=== PATIENT | male | born 1985 | race Caucasian/White ===

== ENCOUNTER 2017-06-25 09:46 | Observation (INO) | payer MEDICAID ==
[2017-06-25] VITALS (7 sets, daily range): BP systolic 118–157; BP diastolic 66–91; PULSE 52–77; RESP 16–18; TEMP 97.8–98.4; O2SAT 97–98
[~2017-06-25] VITALS: Ht 182.9 cm; Wt 100.0 kg
--- NOTE | 2017-06-25 10:10 | PD ---
HPI Chief Complaint: Laceration/Skin Injury Time Seen by Provider: 10:10 Travel History International Travel<30 days: No Contact w/Intl Traveler<30days: No Traveled to known affect area: Yes ([facility] ) History of Present Illness HPI 32-year-old male presents emergency department with injury to the left palm. Patient was working on some electrical outlets last evening, and states he was trying to knock a metal piece out of a electrical box with a Hassan head screwdriver which he then drove into his left palm. He waited until this morning as last evening it did not hurt as bad but now he has pain, swelling, and numbness into the left third and fourth fingers. There is swelling to the dorsal surface of the hand without erythema or warmth. There is no obvious puncture wound to the center of the left palm. Patient states his pain is currently 9 out of 10. Pain causes him to be unwilling to move his left third and fourth fingers. He last ate last evening. His last tetanus was over 5 years ago. He is allergic to vancomycin. [facility] Social History Alcohol Use: No Tobacco Use: No Substance Use: No Allergies-Medications (Allergen,Severity, Reaction): Coded Allergies: vancomycin (Verified Allergy, Intermediate, Rash, 06/25/17) Reported Meds & Prescriptions Reported Meds & Active Scripts Active Review of Systems Except as stated in HPI: all other systems reviewed are Neg General / Constitutional: No: Fever Eyes: No: Visual changes HENT: No: Headaches Cardiovascular: No: Chest Pain or Discomfort Respiratory: No: Shortness of Breath Gastrointestinal: No: Abdominal Pain Genitourinary: No: Dysuria Musculoskeletal: Positive: Myalgias, Limited ROM, Pain (See history of present illness) Skin: No Rash Neurologic: No: Weakness Psychiatric: No: Depression Endocrine: No: Polydipsia Hematologic/Lymphatic: No: Easy Bruising Physical Exam Narrative GENERAL: Patient appears in mild to moderate distress SKIN: Warm and dry. Normal color. Normal turgor. There is ecchymosis to the dorsum of the left hand. There is an obvious puncture wound to the central palm of the left hand. No significant erythema or streaking is noted. HEAD: Atraumatic. Normocephalic. EYES: Pupils equal and round. No scleral icterus. No injection or drainage. ENT: No nasal bleeding or discharge. Mucous membranes pink and moist. Pharynx is clear. Airways patent NECK: Trachea midline. Supple. CARDIOVASCULAR: Regular rate and rhythm. RESPIRATORY: No accessory muscle use. Clear to auscultation. Breath sounds equal bilaterally. MUSCULOSKELETAL: Extremities without clubbing, cyanosis, or edema. No obvious deformities. Patient has limited motion of the left finger secondary to pain, but normal neurovascular exam is noted. Exam is limited secondary to pain. No loss of function noted. NEUROLOGICAL: Awake and alert. No obvious cranial nerve deficits. Motor grossly within normal limits. Five out of 5 muscle strength in the arms and legs. Normal speech. PSYCHIATRIC: Appropriate mood and affect; insight and judgment normal. Data Data Last Documented VS Orders Orders Complete Blood Count With Diff (06/25/17 10:17) Comprehensive Metabolic Panel (06/25/17 10:17) Prothrombin Time / Inr (Pt) (06/25/17 10:17) Act Partial Throm Time (Ptt) (06/25/17 10:17) Iv Access Insert/Monitor (06/25/17 10:17) Ecg Monitoring (06/25/17 10:17) Oximetry (06/25/17 10:17) NPO (06/25/17 10:17) Ondansetron Inj (Zofran Inj) (06/25/17 10:30) Sodium Chlor 0.9% 1000 Ml Inj (Ns 1000 M (06/25/17 10:17) Sodium Chloride 0.9% Flush (Ns Flush) (06/25/17 10:30) Chest, Single Ap (06/25/17 10:17) Ketorolac Inj (Toradol Inj) (06/25/17 10:30) Hand, Complete (Jcy8btg) (06/25/17 10:17) Ice/Cold Pack (06/25/17 10:17) Cefazolin 2 Gm Premix (Ancef 2 Gm Premix (06/25/17 10:30) Consult Hand Surgery (06/25/17 ) (Hub Use Only)Inp Phy Cons/Ref (06/25/17 ) Admit Order (Ed Use Only) (06/25/17 13:17) Labs Laboratory Tests Test 06/25/17 10:45 White Blood Count 7.8 TH/MM3 Red Blood Count 4.65 MIL/MM3 Hemoglobin 15.3 GM/DL Hematocrit 43.6 % Mean Corpuscular Volume 93.9 FL Mean Corpuscular Hemoglobin 32.9 PG Mean Corpuscular Hemoglobin Concent 35.1 % Red Cell Distribution Width 13.6 % Platelet Count 244 TH/MM3 Mean Platelet Volume 8.5 FL Neutrophils (%) (Auto) 69.9 % Lymphocytes (%) (Auto) 19.2 % Monocytes (%) (Auto) 7.5 % Eosinophils (%) (Auto) 2.9 % Basophils (%) (Auto) 0.5 % Neutrophils # (Auto) 5.5 TH/MM3 Lymphocytes # (Auto) 1.5 TH/MM3 Monocytes # (Auto) 0.6 TH/MM3 Eosinophils # (Auto) 0.2 TH/MM3 Basophils # (Auto) 0.0 TH/MM3 CBC Comment DIFF FINAL Differential Comment Prothrombin Time 10.3 SEC Prothromb Time International Ratio 1.0 RATIO Activated Partial Thromboplast Time 25.9 SEC Blood Urea Nitrogen 14 MG/DL Creatinine 0.81 MG/DL Random Glucose 99 MG/DL Total Protein 7.3 GM/DL Albumin 4.0 GM/DL Calcium Level 8.9 MG/DL Alkaline Phosphatase 66 U/L Aspartate Amino Transf (AST/SGOT) 24 U/L Alanine Aminotransferase (ALT/SGPT) 37 U/L Total Bilirubin 0.9 MG/DL Sodium Level 140 MEQ/L Potassium Level 3.9 MEQ/L Chloride Level 105 MEQ/L Carbon Dioxide Level 26.2 MEQ/L Anion Gap 9 MEQ/L Estimat Glomerular Filtration Rate 109 ML/MIN MDM Medical Decision Making Medical Screen Exam Complete: Yes Emergency Medical Condition: Yes Differential Diagnosis Left hand puncture wound. Possible fracture. Foreign body. Infection. Narrative Course Patient is n.p.o. Patient is medically stable at time of exam. Labs ordered including CBC, CMP, and IV access is obtained. Tetanus is given 0.5 mg IM per X-ray of the chest and left hand are ordered. Patient is given 30 mg Toradol IV as well as 2 g Ancef IV. Patient requests no narcotics. X-rays show soft tissue swelling but no other acute findings. There is no free air. Labs are unremarkable. Calls placed to , the hand surgeon, and the patient as discussed. He requested the patient be admitted to the hospitalist for IV antibiotics, left arm elevation, and kept n.p.o. for his consult. Calls placed to the hospitalist at 1200 hrs. Diagnosis Primary Impression: Puncture wound of left hand Qualified Codes: S61.432A - Puncture wound without foreign body of left hand, initial encounter Scripts Ibuprofen (Ibuprofen) 200 Mg Cap 200 MG PO Q6H Y for PAIN for 10 Days, #40 CAP 0 Refills Prov: Nudalo-Briganti,Iszenn [employer] 06/26/17 Cephalexin (Keflex) 500 Mg Cap 500 MG PO Q6H for Infection for 10 Days, #40 CAP 0 Refills Prov: Andreas-KatharinaIszencasimiro [employer] 06/26/17 Condition: Stable Aung Rutherford Jun 25, 2017 10:10
[2017-06-25] MEDS ORDERED: SODIUM CHLOR 0.9% 1000 ML INJ 1,000 ML IV SCH (10:17)
[2017-06-25] MEDS ORDERED: ONDANSETRON HCL 4 MG/2 ML VIAL IVP ONE (10:30)
[2017-06-25] MEDS ORDERED: SODIUM CHLORIDE 0.9% FLUSH 10 ML FLUSH IV FLUSH PRN ×2 (10:30→14:00)
[2017-06-25] MEDS ORDERED: KETOROLAC TROMETHAMINE 30 MG/ML (IVP) VIAL IVP ONE (10:30)
[2017-06-25] MEDS ORDERED: ceFAZolin 2 GM PREMIX 50 ML IV ONE (10:30)
--- NOTE | 2017-06-25 11:02 | RADRPT ---
EXAM DATE/TIME: 06/25/2017 10:38 [facility] COMPARISON: No previous studies available for comparison. INDICATIONS : Left hand pain and laceration on inside of palm, screwdriver went through hand. MEDICAL HISTORY : None. SURGICAL HISTORY : None. ENCOUNTER: Initial ACUITY: 1 day PAIN SCORE: 6/10 LOCATION: Left hand FINDINGS: Three view examination of the left hand demonstrates no soft tissue swelling, dislocation, or fractur e. The carpal bones appear intact. The interphalangeal and metacarpophalangeal joints are intact. Bony mineralization is normal. CONCLUSION: Unremarkable examination of the left hand. Basil Rodriguez MD on June 25, 2017 at 11:01 Board Certified Radiologist. This report was verified electronically.
--- NOTE | 2017-06-25 11:10 | RADRPT ---
EXAM DATE/TIME: 06/25/2017 10:35 [facility] COMPARISON: No previous studies available for comparison. INDICATIONS : Shortness of breath and cough. MEDICAL HISTORY : None. SURGICAL HISTORY : None. ENCOUNTER: Initial ACUITY: 1 day PAIN SCORE: 0/10 LOCATION: Bilateral chest FINDINGS: A single view of the chest demonstrates the lungs to be symmetrically aerated without evidence of mas s, infiltrate or effusion. The cardiomediastinal contours are unremarkable. Osseous structures are intact. CONCLUSION: No acute disease. Basil Rodriguez MD on June 25, 2017 at 11:09 Board Certified Radiologist. This report was verified electronically.
[2017-06-25 11:23] LABS: AUTOMATED NEUTROPHIL # 5.5 TH/MM3 (1.8-7.7); BASOPHIL % 0.5 % (0.0-2.0); EOSINOPHIL # 0.2 TH/MM3 (0-0.4); EOSINOPHIL % 2.9 % (0.0-4.0); HEMATOCRIT 43.6 % (39.0-51.0); HEMOGLOBIN 15.3 GM/DL (13.0-17.0); LYMPH % 19.2 % (9.0-44.0); LYMPHOCYTE # 1.5 TH/MM3 (1.0-4.8); MEAN CELL VOLUME 93.9 FL (80.0-100.0); MEAN CORPUSCULAR HEMOGLOBIN 32.9 PG (27.0-34.0); MEAN CORPUSCULAR HGB CONC 35.1 % (32.0-36.0); MEAN PLATELET VOLUME 8.5 FL (7.0-11.0); MONO % 7.5 % (0.0-8.0); MONOCYTE # 0.6 TH/MM3 (0-0.9); NEUT % 69.9 % (16.0-70.0); PLATELET COUNT 244 TH/MM3 (150-450); RED BLOOD COUNT 4.65 MIL/MM3 (4.50-5.90); RED CELL DISTRIBUTION WIDTH 13.6 % (11.6-17.2); WHITE BLOOD COUNT 7.8 TH/MM3 (4.0-11.0)
[2017-06-25 11:33] LABS: PROTHROMBIN TIME - PATIENT 10.3 SEC (9.8-11.6)
[2017-06-25 11:41] LABS: AST (GOT) 24 U/L (15-37); BICARBONATE 26.2 MEQ/L (21.0-32.0); BLOOD UREA NITROGEN 14 MG/DL (7-18); CALCIUM 8.9 MG/DL (8.5-10.1); CHLORIDE 105 MEQ/L (98-107); CREATININE 0.81 MG/DL (0.60-1.30); GLOMERULAR FILTRATION RATE 109 ML/MIN (>89); GLUCOSE,RANDOM 99 MG/DL (74-106); SODIUM (NA) 140 MEQ/L (136-145)
[2017-06-25 11:42] LABS: ALT (GPT) 37 U/L (12-78)
[2017-06-25 11:44] LABS: ALKALINE PHOSPHATASE 66 U/L (45-117); TOTAL BILIRUBIN ADULT 0.9 MG/DL (0.2-1.0); TOTAL PROTEIN 7.3 GM/DL (6.4-8.2)
--- NOTE | 2017-06-25 13:44 | HHI.HP ---
[facility] Service [facility] Primary Care Physician No Primary Care Physician Admission Diagnosis Puncture wound Left hand Diagnoses: Travel History International Travel<30 Days: No Contact w/Intl Traveler <30 Da: No Traveled to Known Affected Are: Yes ([facility] ) History of Present Illness 32-year-old white male with no past medical history presents to the emergency room with increased left hand pain and swelling since he sustained an injury to the middle left palm of his hand. Apparently around 1130 yesterday evening he was trying to knock a piece of metal out of electric box with a Whatever screwdriver and accidentally drove and punctured his left palm. He reports increased pain and swelling over the dorsum of his hand causing him to have difficulty flexing and extending his entire hand. This pain has extended over his left third and fourth fingers causing restrictive movement. He denies any other injuries to the area. Review of Systems Constitutional: DENIES: Fatigue, Fever, Chills, Change in appetite Endocrine: DENIES: Heat/cold intolerance Eyes: DENIES: Blurred vision, Eye pain, Vision loss Ears, nose, mouth, throat: DENIES: Hearing loss, Nasal discharge, Throat pain, Ear Pain, Sinus Pain Respiratory: DENIES: Cough, Shortness of breath Cardiovascular: DENIES: Chest pain, Palpitations, Dyspnea on Exertion, Lower Extremity Edema Gastrointestinal: DENIES: Abdominal pain, Black stools, Bloody stools, Constipation, Diarrhea, Nausea, Vomiting Musculoskeletal: COMPLAINS OF: Joint pain, Stiffness (Left hand swelling.), DENIES: Muscle aches Integumentary: DENIES: Rash Hematologic/lymphatic: DENIES: Bruising, Lymphadenopathy Immunologic/allergic: DENIES: Eczema Neurologic: DENIES: Headache, Localized weakness, Paresthesias Psychiatric: DENIES: Anxiety, Depression, Suicidal Ideation Past Family Social History Past Medical History None Past Surgical History Previous head trauma and surgical removal of a "nail" Reported Medications None Allergies: Coded Allergies: vancomycin (Verified Allergy, Intermediate, Rash, 06/25/17) Family History None. Social History Occasional alcohol use. Physical Exam Vital Signs Vital Signs Date Time Temp Pulse Resp B/P (MAP) Pulse Ox O2 Delivery O2 Flow Rate FiO2 06/25/17 13:20 98 Room Air 06/25/17 11:00 58 16 121/66 (84) 98 Room Air 06/25/17 09:49 97.8 68 18 134/74 (94) 98 Physical Exam GENERAL: This is a well-nourished, well-developed patient, in no apparent distress. SKIN: Red puncture wound over the left center palmar of the hand; cool and dry. HEAD: Atraumatic. Normocephalic. No temporal or scalp tenderness. EYES: Pupils equal round and reactive. Extraocular motions intact. No scleral icterus. No injection or drainage. ENT: Nose without bleeding, purulent drainage or septal hematoma. NECK: Trachea midline. No JVD or lymphadenopathy. Supple, nontender, no meningeal signs. CARDIOVASCULAR: Regular rate and rhythm without murmurs, gallops, or rubs. RESPIRATORY: Clear to auscultation. Breath sounds equal bilaterally. No wheezes , rales, or rhonchi. GASTROINTESTINAL: Abdomen soft, non-tender, nondistended. Normoactive bowel sounds. No guarding. MUSCULOSKELETAL: Left dorsum of the hand with 2 cm x 2 cm puncture wound with no active drainage but with swelling and restricted of movement of the third and fourth fingers to fully extend. No lymphangitis or erythema seen.; Lower extremities extremities without clubbing, cyanosis, or edema. NEUROLOGICAL: Awake and alert to person place time and situation. Cranial nerves II through XII intact. Motor and sensory grossly within normal limits. Five out of 5 muscle strength in all muscle groups. Normal speech. Laboratory Laboratory Tests Test 06/25/17 10:45 White Blood Count 7.8 Red Blood Count 4.65 Hemoglobin 15.3 Hematocrit 43.6 Mean Corpuscular Volume 93.9 Mean Corpuscular Hemoglobin 32.9 Mean Corpuscular Hemoglobin Concent 35.1 Red Cell Distribution Width 13.6 Platelet Count 244 Mean Platelet Volume 8.5 Neutrophils (%) (Auto) 69.9 Lymphocytes (%) (Auto) 19.2 Monocytes (%) (Auto) 7.5 Eosinophils (%) (Auto) 2.9 Basophils (%) (Auto) 0.5 Neutrophils # (Auto) 5.5 Lymphocytes # (Auto) 1.5 Monocytes # (Auto) 0.6 Eosinophils # (Auto) 0.2 Basophils # (Auto) 0.0 CBC Comment DIFF FINAL Differential Comment Prothrombin Time 10.3 Prothromb Time International Ratio 1.0 Activated Partial Thromboplast Time 25.9 Blood Urea Nitrogen 14 Creatinine 0.81 Random Glucose 99 Total Protein 7.3 Albumin 4.0 Calcium Level 8.9 Alkaline Phosphatase 66 Aspartate Amino Transf (AST/SGOT) 24 Alanine Aminotransferase (ALT/SGPT) 37 Total Bilirubin 0.9 Sodium Level 140 Potassium Level 3.9 Chloride Level 105 Carbon Dioxide Level 26.2 Anion Gap 9 Estimat Glomerular Filtration Rate 109 Result Diagram: 06/25/17 1045 06/25/17 1045 Imaging Last Impressions Hand X-Ray 06/25/17 1017 Signed Impressions: Service Date/Time: Sunday, June 25, 2017 10:38 - CONCLUSION: Unremarkable examination of the left hand. Basil Rodriguez MD Chest X-Ray 06/25/17 1017 Signed Impressions: Service Date/Time: Sunday, June 25, 2017 10:35 - CONCLUSION: No acute disease. Basil Rodriguez MD Caprini VTE Risk Assessment Caprini VTE Risk Assessment: No/Low Risk (score <= 1) Caprini Risk Assessment Model Point Value = 1 Point Value = 2 Point Value = 3 Point Value = 5 Age 41-60 Minor surgery BMI > 25 kg/m2 Swollen legs Varicose veins or History of unexplained or recurrent spontaneous Oral contraceptives or hormone replacement Sepsis (< 1 month) Serious lung disease, including pneumonia (< 1 month) Abnormal pulmonary function Acute myocardial infarction Congestive heart failure (< 1 month) History of inflammatory bowel disease Medical patient at bed rest Age 61-74 Arthroscopic surgery Major open surgery (> 45 min) Laparoscopic surgery (> 45 min) Malignancy Confined to bed (> 72 hours) Immobilizing plaster cast Central venous access Age >= 75 History of VTE Family history of VTE Factor V Leiden Prothrombin [id number] Lupus anticoagulant Anticardiolipin antibodies Elevated serum homocysteine Heparin-induced thrombocytopenia Other congenital or acquired thrombophilia Stroke (< 1 month) Elective arthroplasty Hip, pelvis, or leg fracture Acute spinal cord injury (< 1 month) Prophylaxis Regimen Total Risk Factor Score Risk Level Prophylaxis Regimen 0-1 Low Early ambulation 2 Moderate Order ONE of the following: *Sequential Compression Device (SCD) *Heparin 5000 units SQ BID 3-4 Higher Order ONE of the following medications: *Heparin 5000 units SQ TID *Enoxaparin/Lovenox 40 mg SQ daily (WT < 150 kg, CrCl > 30 mL/min) *Enoxaparin/Lovenox 30 mg SQ daily (WT < 150 kg, CrCl > 10-29 mL/min) *Enoxaparin/Lovenox 30 mg SQ BID (WT < 150 kg, CrCl > 30 mL/min) AND/OR *Sequential Compression Device (SCD) 5 or more Highest Order ONE of the following medications: *Heparin 5000 units SQ TID (Preferred with Epidurals) *Enoxaparin/Lovenox 40 mg SQ daily (WT < 150 kg, CrCl > 30 mL/min) *Enoxaparin/Lovenox 30 mg SQ daily (WT < 150 kg, CrCl > 10-29 mL/min) *Enoxaparin/Lovenox 30 mg SQ BID (WT < 150 kg, CrCl > 30 mL/min) AND *Sequential Compression Device (SCD) Assessment and Plan Problem List: (1) Puncture wound of left hand ICD Code: S61.432A - Puncture wound without foreign body of left hand, initial encounter Status: Acute Assessment and Plan 1. Left palmar hand puncture wound with increased swelling and pain and increased restriction of movement -place the patient on observation for evaluation with hand surgery. ED provider has spoken with Dr. Jordan, hand surgery knitting demonstrator who recommended n.p.o. until further surgical evaluation. At this time we will continue with IV antibiotics pain control. 2. DVT prophylaxis- No mechanical or pharmaceutical VTE prophalaxis administered due to patient's low risk assessment of VTE. Encouraged ambulation. Problem Qualifiers (1) Puncture wound of left hand: Qualified Codes: S61.432A - Puncture wound without foreign body of left hand, initial encounter Arminda Seaman MD Jun 25, 2017 13:44
[2017-06-25] MEDS ORDERED: ACETAMINOPHEN 325 MG TAB PO PRN (14:00)
[2017-06-25] MEDS ORDERED: KETOROLAC TROMETHAMINE 30 MG/ML (IVP) VIAL IV PUSH PRN (14:00)
--- NOTE | 2017-06-25 20:48 | MB ---
cc: Santiago Jordan MD DATE OF CONSULT: 06/25/2017 REASON FOR CONSULTATION: Penetrating injury left palm. The patient is a 32-year-old right hand dominant male, presented to the ED with the complaint of injury to the left hand. The patient states he was working with a screwdriver when he accidentally jabbed the screwdriver into the left palm yesterday around 11:30 p.m. The patient noticed swelling of the dorsal aspect of hand with worsening pain and hence he presented to the ED. The patient states he has difficulty making a fist. Denies any tingling, numbness. Denies any fever. Denies any drainage. The patient also states it was a Hassan a screwdriver and not mary or dirty. Denies any bleeding from the region. PAST MEDICAL HISTORY: None. ____for previous head trauma. PAST SURGICAL HISTORY: None. PHYSICAL EXAMINATION: GENERAL: The patient is alert and oriented x 3. EXTREMITIES: Examination of the left hand reveals a puncture wound in the mid palm between the middle and the ring finger. Metacarpals at the proximal palmar crease, there is evidence of swelling of the dorsal aspect of the hand corresponding to the extensor tendons of the ring and the middle fingers. No tenderness noted along the palm. No drainage. No ____ tenderness noted over the dorsal aspect of the hand with boggy swelling around the extensor tendon sheath. The patient is able to make a fist, terminal degrees of extension of the fingers is associated with pain. He has intact flexion and extension of the fingers. He has intact distal sensation. He has intact distal circulation. X-rays of the left hand were reviewed. Show no evidence of foreign body or fracture. No evidence of soft tissue gas noted. LABORATORY DATA: Reviewed. He has a white count of 7.8 with 69% of neutrophil shift. ASSESSMENT: A 32-year-old male with puncture wound to the left palm and questionable for extensive tenosynovitis. PLAN: To continue with observation and will continue with IV antibiotics. The patient was informed that if there is no improvement in his symptoms, will proceed with surgical exploration and likely extensive tenosynovectomy. Will keep him n.p.o. from midnight for clinical reassessment for tomorrow morning. Hand surgery will follow up. Santiago Jordan MD SE/ , 04:38 PM , 08:47 PM
[2017-06-25] MEDS: SODIUM CHLORIDE 0.9% FLUSH 10 ML FLUSH IV FLUSH SCH (21:37)
[2017-06-25] MEDS: KETOROLAC TROMETHAMINE 30 MG/ML (IVP) VIAL IV PUSH PRN (21:37)
[2017-06-26 05:47] VITALS: BP 120/74; PULSE 74; RESP 18; TEMP 98.4; O2SAT 99
[2017-06-26 07:26] VITALS: BP 136/84; PULSE 58; RESP 20; TEMP 97.5; O2SAT 98
[2017-06-26] MEDS: SODIUM CHLORIDE 0.9% FLUSH 10 ML FLUSH IV FLUSH SCH (09:49)
[2017-06-26] MEDS: KETOROLAC TROMETHAMINE 30 MG/ML (IVP) VIAL IV PUSH PRN (09:51)
[2017-06-26 10:58] VITALS: BP 116/65; PULSE 59; RESP 16; TEMP 97.6; O2SAT 99
--- NOTE | 2017-06-26 11:14 | HHI.PR ---
Subjective Remarks complains of mild pain which is getting better able to make a better fist denies any numbness or tingling no fever Objective Vital Signs Date Time Temp Pulse Resp B/P (MAP) Pulse Ox O2 Delivery O2 Flow Rate FiO2 06/26/17 10:58 97.6 59 16 116/65 (82) 99 06/26/17 07:26 97.5 58 20 136/84 (101) 98 06/26/17 05:47 98.4 74 18 120/74 (89) 99 06/25/17 23:51 98.4 77 17 157/91 (113) 97 06/25/17 20:15 98.0 60 18 120/78 (92) 98 06/25/17 17:34 98.0 62 16 120/80 (93) 97 06/25/17 15:00 52 16 118/78 (91) 98 Room Air 06/25/17 13:20 98 Room Air I/O 06/25/17 06/25/17 06/25/17 06/26/17 06/26/17 06/26/17 07:00 15:00 23:00 07:00 15:00 23:00 Intake Total 500 ml 750 ml Balance 500 ml 750 ml Intake Oral 500 ml 750 ml # Voids 2 examination of the left hand; puncture wound over the palm no drainage decreased swelling over the dorsal aspect of the hand able to make better fist full extension of the fingers intact sensation distally Result Diagram: 06/25/17 1045 06/25/17 1045 Assessment and Plan Assessment and Plan 32 year old male with puncture wound left palm symptomatically better Plan: cleared for discharge from hand surgery on po antibiotics patient has been advised to keep the part clean and dry follow up in office in one week time patient has been advised to return to ED if there is any worsening symptoms Santiago Jordan MD Jun 26, 2017 11:14
[2017-06-26] MEDS ORDERED: CEPH-460 PO (12:53)
[2017-06-26] MEDS ORDERED: IBUP200C PO (12:54)
--- NOTE | 2017-06-26 12:54 | HHI.PR ---
Subjective Remarks Follow-up visit puncture wound on the left hand. Patient seen and examined today. Reports he is doing well. Left hand patient has improved significantly. Swelling is also improved. Denies SOB/ dyspnea. Denies chest pain, palpitations, headaches, dizziness. Denies fevers, chills, n/v/d. Denies dysuria. Objective Vitals Vital Signs Date Time Temp Pulse Resp B/P (MAP) Pulse Ox O2 Delivery O2 Flow Rate FiO2 06/26/17 10:58 97.6 59 16 116/65 (82) 99 06/26/17 07:26 97.5 58 20 136/84 (101) 98 06/26/17 05:47 98.4 74 18 120/74 (89) 99 06/25/17 23:51 98.4 77 17 157/91 (113) 97 06/25/17 20:15 98.0 60 18 120/78 (92) 98 06/25/17 17:34 98.0 62 16 120/80 (93) 97 06/25/17 15:00 52 16 118/78 (91) 98 Room Air 06/25/17 13:20 98 Room Air I/O 06/25/17 06/25/17 06/25/17 06/26/17 06/26/17 06/26/17 07:00 15:00 23:00 07:00 15:00 23:00 Intake Total 500 ml 750 ml Balance 500 ml 750 ml Intake Oral 500 ml 750 ml # Voids 2 Result Diagram: 06/25/17 1045 06/25/17 1045 Imaging Last Impressions Hand X-Ray 06/25/17 1017 Signed Impressions: Service Date/Time: Sunday, June 25, 2017 10:38 - CONCLUSION: Unremarkable examination of the left hand. Basil Rodriguez MD Chest X-Ray 06/25/17 1017 Signed Impressions: Service Date/Time: Sunday, June 25, 2017 10:35 - CONCLUSION: No acute disease. Basil Rodriguez MD Objective Remarks GENERAL: This is a well-nourished, well-developed patient, in no apparent distress. SKIN: Warm and dry. HEENT: Normocephalic. Pupils equal round and reactive. Nose without bleeding. Airway patent. NECK: Trachea midline. CARDIOVASCULAR: Regular rate and rhythm without murmurs, gallops, or rubs. RESPIRATORY: Clear to auscultation. Breath sounds equal bilaterally. No wheezes , rales, or rhonchi. GASTROINTESTINAL: Abdomen soft, non-tender, nondistended. Bowel Sounds normoactive x4. MUSCULOSKELETAL: Extremities without clubbing, cyanosis. Left hand dorsal area with mild edema no erythema. Palmar puncture site without any drainage, erythema or edema noted. NEUROLOGICAL: Awake and alert. Oriented to time, place, person. Moves all extremities. Normal speech. A/P Problem List: (1) Puncture wound of left hand ICD Code: S61.432A - Puncture wound without foreign body of left hand, initial encounter Status: Acute Assessment and Plan Patient is a 32-year-old white male with no past medical history who came into the hospital for increased left hand pain and swelling since he sustained an injury to the middle left palm of his hand. Left hand or puncture wound - X-ray of the hand unremarkable examination - has been receiving Ancef IV - Hand surgeon consulted for further evaluation and recommendation. Patient was cleared for discharge today and will follow-up at the surgeon's office. - We'll start by mouth Keflex at discharge. - Improved pain and swelling. - As per ED adult tetanus IM 0.5 mg but no documented administration. Will reorder. Discharge patient to home Condition on discharge: Improved Regular Diet as tolerated Ad Elina activity Rx written: Keflex 500mg PO Q6HRs x 10 days Follow-up with hand surgeon Follow-up with primary care physician Problem Qualifiers (1) Puncture wound of left hand: Qualified Codes: S61.432A - Puncture wound without foreign body of left hand, initial encounter Kirby Van Jun 26, 2017 12:54
--- NOTE | 2017-06-26 12:54 | HHI.DCPOC ---
Discharge Care Plan Diagnosis: (1) Puncture wound of left hand Your Health Problems Are: Inflammation Swelling Goals to Promote Your Health * To prevent worsening of your condition and complications * To maintain your health at the optimal level Directions to Meet Your Goals Take your medications as prescribed Follow your dietary instruction Follow activity as directed Keep your appointments as scheduled Take your immunizations and boosters as scheduled If your symptoms worsen call your PCP, if no PCP go to Urgent Care Center or Emergency Room Smoking is Dangerous to Your Health. Avoid second hand smoke Call the 24-hour hour crisis hotline for domestic abuse at Kirby Van Jun 26, 2017 12:54
[2017-06-26] MEDS ORDERED: TETANUS/DIPHTHERIA TOXOID ADULT 0.5 ML VIAL IM ONE (13:00)
== END 2017-06-26 14:49 | disposition home or self-care (01) ==
LOC: NEPD 09:46 → UNDOADMOB 13:18 → NEDA 13:18 → NEPFCDU 17:18 → UNDODISOB 06-26 14:49
PROVIDERS: ADMIT Hospitalist; ATTEND Hospitalist
DX: S61.432A Puncture wound without foreign body of left hand, initial encounter (principal); R06.02 Shortness of breath; R05 Cough; Z23 Encounter for immunization; Z88.1 Allergy status to other antibiotic agents; W27.0XXA Contact with workbench tool, initial encounter
CPT/HCPCS: 71045; 73130; 80053; 85025; 85610; 85730; 90471; 90714; 96365; 96366; 96375; 96376; 99285; G0378; J0690; J1885; J2405; J7030; G0008